=== PATIENT | male | born 1955 | race Caucasian/White ===

== ENCOUNTER 2019-08-10 12:01 | Emergency (ER) | payer OTHER ==
[~2019-08-10 12:01] MED LIST: Iopamidol 370 76% 125 ML VIAL FS ONE; Sodium Chloride 0.9% 100 ML BAG ONE
[2019-08-10 12:57] LABS: #Basophils 0.1 thou/uL (0.0-0.2); #Eosinphils 0.2 thou/uL (0.0-0.7); #Lymphocytes 1.7 thou/uL (1.20-3.40); #Monocytes 0.5 thou/uL (0.11-0.59); #Neutrophils 3.5 thou/uL (1.40-6.50); %Basophils 1.4 % (0.0-1.0); %Eosinophils 3.6 % (0.0-10.0); %Monocytes 7.6 % (0.0-10.0); %Neutrophils 59.5 % (42.0-75.0); Hemoglobin 13.5 g/dL (14.0-18.0); Mean Corpuscular HGB CONC 31.8 g/dL (32.0-36.0); Mean Corpuscular Hemoglobin 29.8 pg (27.0-31.0); Mean Corpuscular Volume 93.6 fL (78.0-98.0); Mean Platelet Volume 8.1 fL (7.4-10.4); Platelet Count 232 thou/uL (130-400); RBC Distribution Width 12.5 % (11.5-14.5); Red Blood Cell (RBC) Count 4.55 mill/uL (4.70-6.10)
[2019-08-10 13:12] LABS: ALT (SGPT) 24 U/L (8-55); AST (SGOT) 14 U/L (5-34); Albumin 3.8 g/dL (3.4-4.8); Alkaline Phosphatase 73 U/L (40-110); Anion Gap 14 mmol/L (10-20); BUN (Urea Nitrogen) 25 mg/dL (8.4-25.7); Bilirubin, Total 0.6 mg/dL (0.2-1.2); Calc. Creatinine Clearance 0 mL/min (70-130); Calcium 8.5 mg/dL (7.8-10.44); Carbon Dioxide 19 mmol/L (23-31); Chloride 114 mmol/L (98-107); Estimated GFR-MDRD 80; Globulin 2.9 g/dL (2.4-3.5); Glucose 88 mg/dL (80-115); Protein, Total 6.7 g/dL (5.8-8.1); Sodium 143 mmol/L (136-145)
--- NOTE | 2019-08-10 13:20 | RAD ---
TWO VIEWS OF THE CHEST: DATE: 08/10/2019. COMPARISON: None. HISTORY: Short of breath. FINDINGS: No pneumothorax, pleural fluid, focal consolidation, or alveolar edema. Heart and mediastinal contou rs are unremarkable. IMPRESSION: No acute findings. POS: [facility]
--- NOTE | 2019-08-10 15:23 | CT ---
CT angiogram chest with IV contrast and 3-D imaging HISTORY: Dyspnea. Chest pain. FINDINGS: Large filling defects are present within the right main pulmonary artery and segmental chelsea jason to each lobe. A few of the filling defects result in terminal blockage. Many are incompletely occlusive. Mild anterior bowing of the right ventricle wall. Bovine origin of the great vessels at the aortic ar ch. Small pocket of right upper lobe lung tissue herniates anteriorly at the right first costomanubrial j unction. 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 Within the partially visualized upper abdomen, cysts are present within the liver and left kidney. IMPRESSION : Extensive bilateral pulmonary emboli with overall moderate clot burden and evidence of mild right ramando tricular strain. Findings were called to Dr. Whiteside in the [facility] emergency department at 1509 hours. Code CR.
[2019-08-10 16:27] LABS: INR-International Normal Ratio 1.1; PTT 27.8 SEC (22.9-36.1)
[2019-08-10] MEDS ORDERED: Enoxaparin Sodium 60 MG/0.6 ML SYRINGE ONE (16:31)
[2019-08-10] MEDS ORDERED: Enoxaparin Sodium 40 MG/0.4 ML SYRINGE ONE (16:31)
== END 2019-08-10 16:45 | disposition short-term general hospital (02) ==
LOC: MADERS 12:01
DX: I26.99 Other pulmonary embolism without acute cor pulmonale (principal); E87.70 Fluid overload, unspecified
CPT/HCPCS: 36415; 71046; 71275; 80053; 83880; 84484; 85025; 85610; 85730; 93005; 94760; 96372; J1650; J3490; Q9967

== ENCOUNTER 2020-04-21 14:05 | Outpatient (CLI) | payer OTHER ==
[2020-04-21 14:29] LABS: INR-International Normal Ratio 2.9; Prothrombin Time 30.7 sec (12.0-14.7)
== END 2020-04-21 14:06 | disposition home or self-care (01) ==
LOC: MADLAB 14:05
DX: Z51.81 Encounter for therapeutic drug level monitoring (principal); Z79.01 Long term (current) use of anticoagulants
CPT/HCPCS: 36415; 85610

== ENCOUNTER 2020-04-27 16:20 | Emergency (ER) | payer OTHER ==
[~2020-04-27 16:20] MED LIST changes: -Sodium Chloride 0.9% 100 ML BAG ONE
[2020-04-27 17:06] LABS: #Basophils 0.1 thou/uL (0.0-0.2); #Eosinphils 0.3 thou/uL (0.0-0.7); #Lymphocytes 1.5 thou/uL (1.20-3.40); #Monocytes 0.5 thou/uL (0.11-0.59); #Neutrophils 2.5 thou/uL (1.40-6.50); %Basophils 1.4 % (0.0-1.0); %Eosinophils 5.4 % (0.0-10.0); %Lymphocytes 30.5 % (21.0-51.0); %Neutrophils 51.8 % (42.0-75.0); Hemoglobin 13.2 g/dL (14.0-18.0); Mean Corpuscular HGB CONC 32.6 g/dL (32.0-36.0); Mean Corpuscular Hemoglobin 30.5 pg (27.0-31.0); Mean Corpuscular Volume 93.4 fL (78.0-98.0); Mean Platelet Volume 7.5 fL (7.4-10.4); Platelet Count 229 thou/uL (130-400); RBC Distribution Width 11.9 % (11.5-14.5); Red Blood Cell (RBC) Count 4.35 mill/uL (4.70-6.10); White Blood Cell (WBC) Count 4.8 thou/uL (4.8-10.8)
[2020-04-27 17:07] LABS: MDiff Complete? YES; Manual Diff?? NO
[2020-04-27 17:10] LABS: PTT 32.7 sec (22.9-36.1); Prothrombin Time 22.7 sec (12.0-14.7)
[2020-04-27 17:18] LABS: ALT (SGPT) 25 U/L (8-55); AST (SGOT) 22 U/L (5-34); Alkaline Phosphatase 66 U/L (40-110); Anion Gap 15 mmol/L (10-20); BUN (Urea Nitrogen) 19 mg/dL (8.4-25.7); Bilirubin, Total 0.5 mg/dL (0.2-1.2); CK (CPK) 140 U/L (30-200); Calc. Creatinine Clearance 0 mL/min (70-130); Calcium 8.3 mg/dL (7.8-10.44); Carbon Dioxide 22 mmol/L (23-31); Chloride 109 mmol/L (98-107); Globulin 2.7 g/dL (2.4-3.5); Glucose 91 mg/dL (80-115); Potassium 3.7 mmol/L (3.5-5.1); Protein, Total 6.7 g/dL (5.8-8.1); Sodium 142 mmol/L (136-145)
--- NOTE | 2020-04-27 17:54 | CT ---
CT OF BRAIN 04/27/20 PROVIDED CLINICAL HISTORY: Dizziness. No comparisons. The ventricular system appears normal in size and morphology. There is no evidence for intracranial h emorrhage or mass effect. There is focal loss of canales-white differentiation and a poorly defined appe arance to the gyrus focally involving the left high parietal region likely reflecting late subacute i nfarction. The extracranial soft tissues and osseous structures demonstrate no significant abnormalit y. IMPRESSION: 1. No evidence for intracranial hemorrhage or mass effect. 2. Probable late subacute infarction involving the left high parietal region. POS: MORE
[2020-04-27] MEDS ORDERED: Meclizine HCl 25 MG TAB ONE (17:55)
--- NOTE | 2020-04-27 17:58 | CT ---
Exam: CT angiogram of the chest HISTORY: Chest pain. Dizziness. History of bilateral pulmonary artery emboli. COMPARISON: 08/10/2019 TECHNIQUE: CT angiogram of the chest is performed in the axial plane. Three-dimensional reformatted i mages are submitted for interpretation FINDINGS: Mediastinum: No mass, lymphadenopathy or hematoma. HEART: Normal size. No significant pericardial fluid. Aorta: No aneurysm or dissection Upper solid abdominal viscera: Stable hypodensity in the liver, favored to be hepatic cysts. No acute abnormality in the upper abdomen. Trachea and central bronchi: Patent Pleural spaces: No effusion Lung parenchyma: No masses or consolidation. The dependent atelectatic changes Pneumothorax: None Osseous structures: No lytic or blastic lesions Pulmonary arteries: Adequate contrast opacification pulmonary arterial system to the level of segment al arteries. No filling defect to suggest pulmonary embolism IMPRESSION: 1. No evidence of pulmonary artery embolism to the level of the segmental arteries.
[2020-04-27] MEDS ORDERED: Aspirin Chewable 81 MG TAB ONE (18:22)
[2020-04-27] MEDS ORDERED: Warfarin Sodium 5 MG TAB PO SCH (20:15)
== END 2020-04-27 22:02 | disposition short-term general hospital (02) ==
LOC: MADERS 16:20
DX: I63.9 Cerebral infarction, unspecified (principal); Z86.711 Personal history of pulmonary embolism
CPT/HCPCS: 36415; 70450; 71275; 80053; 82550; 84484; 85025; 85610; 85730; 93005; Q9967

== ENCOUNTER 2020-05-09 11:27 | Outpatient (CLI) | payer OTHER ==
[2020-05-09 11:50] LABS: INR-International Normal Ratio 2.5; Prothrombin Time 27.7 sec (12.0-14.7)
== END 2020-05-09 11:28 | disposition home or self-care (01) ==
LOC: MADLAB 11:27
DX: Z51.81 Encounter for therapeutic drug level monitoring (principal); Z79.01 Long term (current) use of anticoagulants
CPT/HCPCS: 36415; 85610

== ENCOUNTER 2020-06-13 10:24 | Outpatient (CLI) | payer OTHER ==
[2020-06-13 10:56] LABS: INR-International Normal Ratio 2.7; Prothrombin Time 29.3 sec (12.0-14.7)
== END 2020-06-13 10:25 | disposition home or self-care (01) ==
LOC: MADLAB 10:24
PROVIDERS: ATTEND Family Medicine
DX: Z51.81 Encounter for therapeutic drug level monitoring (principal); Z79.01 Long term (current) use of anticoagulants
CPT/HCPCS: 36415; 85610

== ENCOUNTER 2020-07-22 17:32 | Outpatient (CLI) | payer OTHER ==
[2020-07-22 17:53] LABS: Prothrombin Time 31.6 sec (12.0-14.7)
== END 2020-07-22 17:33 | disposition home or self-care (01) ==
LOC: MADLAB 17:32
PROVIDERS: ATTEND Family Medicine
DX: Z51.81 Encounter for therapeutic drug level monitoring (principal); Z79.01 Long term (current) use of anticoagulants
CPT/HCPCS: 36415; 85610

== ENCOUNTER 2021-05-05 08:10 | Outpatient (CLI) | payer OTHER ==
[2021-05-05 09:25] LABS: INR-International Normal Ratio 3.1; Prothrombin Time 32.6 sec (12.0-14.7)
== END 2021-05-05 08:11 | disposition home or self-care (01) ==
LOC: MADLAB 08:10
PROVIDERS: ATTEND Family Medicine
DX: I26.99 Other pulmonary embolism without acute cor pulmonale (principal)
CPT/HCPCS: 36415; 85610

== ENCOUNTER 2021-06-07 15:57 | Outpatient (CLI) | payer OTHER ==
[2021-06-07 16:18] LABS: INR-International Normal Ratio 2.8; Prothrombin Time 29.9 sec (12.0-14.7)
== END 2021-06-07 15:58 | disposition home or self-care (01) ==
LOC: MADLAB 15:57
PROVIDERS: ATTEND Family Medicine
DX: I26.99 Other pulmonary embolism without acute cor pulmonale (principal)
CPT/HCPCS: 36415; 85610

== ENCOUNTER 2021-07-06 08:20 | Outpatient (CLI) | payer OTHER ==
[2021-07-06 08:44] LABS: INR-International Normal Ratio 2.5; Prothrombin Time 27.7 sec (12.0-14.7)
== END 2021-07-06 08:21 | disposition home or self-care (01) ==
LOC: MADLAB 08:20
PROVIDERS: ATTEND Family Medicine
DX: I26.99 Other pulmonary embolism without acute cor pulmonale (principal)
CPT/HCPCS: 36415; 85610